=== PATIENT | male | born 1975 | race Caucasian/White ===

== ENCOUNTER 2021-03-31 08:08 | Inpatient (IN) | payer BC ==
[~2021-03-31] VITALS: Ht 172.7 cm; Wt 87.1 kg
[2021-03-31 08:23] VITALS: BP 123/78
[2021-03-31] MEDS ORDERED: MELOXICAM7.5 MG PO (08:27)
[2021-03-31] MEDS ORDERED: LOSARTAN-HCTZ1 EAC3 PO (08:27)
[2021-03-31 08:57] LABS: BE(vivo) 1.7 mmol/L (-2 to +3); HCO3 24.6 mmol/L (22.0-26.0); PCO2 33.6 mmHg (35.0-45.0); PO2 75.5 mmHg (80.0-100.0); pH 7.482 (7.360-7.450); sO2 96.1 % (92.0-98.0)
[2021-03-31 08:58] LABS: ABSOLUTE NEUTROPHILS 5.8 thou/uL (1.4-8.2); BASOPHILS 0.1 % (0.0-2.0); HEMOGLOBIN 14.7 gm/dL (14.0-18.0); LYMPHOCYTES 8.2 % (24.0-44.0); MCH 32.2 pg (26.0-34.0); MCHC 34.1 g/dL (28.0-37.0); MCV 94.3 fL (80.0-100.0); MONOCYTES 9.3 % (1.0-8.0); PLATELET COUNT 199 thou/uL (150-400); POLYS 82.4 % (36.0-66.0); RBC 4.56 mil/uL (4.50-6.00); RDW 13.3 % (10.5-14.5); WBC 7.1 thou/uL (4.0-11.0)
[2021-03-31 09:02] LABS: CALCIUM 8.5 mg/dL (8.5-10.1); POTASSIUM 3.5 mmol/L (3.5-5.1)
[2021-03-31 09:18] LABS: APTT 30.1 Seconds (24.5-32.8); D-DIMER 0.4 ug/mLFEU (0.19-0.50); PROTIME 10.9 Seconds (10.5-12.1)
[2021-03-31 09:19] LABS: ALBUMIN 3.1 g/dL (3.4-5.0); TOTAL BILIRUBIN 0.5 mg/dL (0.2-1.0); TOTAL PROTEIN 6.6 g/dL (6.4-8.2)
--- NOTE | 2021-03-31 09:39 | EKG ---
[address] [place] [place] [address] ELECTROCARDIOGRAM REPORT Name: REY DAVIS [facility] [id number] Admission: 03/31/21 Attend Phys: Discharge: Date of : 75 Report #: [id number] [facility] ED Test Date: 2021-03-31 Test Time: 08:46:01 Pat Name: REY DAVIS Department: Room: Gender: M Clinical Rn Manager: : 1975 Requested By: Wilfredo Devine Order Number: [id number] MD: Jett Ang Measurements Intervals [place] Rate: 84 P: 32 DE: 125 QRS: 38 QRSD: 86 T: 13 QT: 351 QTc: 415 Interpretive Statements Sinus rhythm Anteroseptal infarct, old No previous ECG available for comparison Electronically Signed On 03-31-2021 9:39:31 CDT by Jett Ang [email or web address] <ELECTRONICALLY SIGNED> By: Jett Ang MD, [facility] 03/31/21 [id number] [id number] Jett Ang MD, FACC /EPI
[2021-03-31 09:56] VITALS: BP 123/78
[2021-03-31 10:40] VITALS: BP 125/71
[2021-03-31 11:09] VITALS: BP 150/83
[2021-03-31] MEDS ORDERED: PREDNISONE 10 M10 MG PO (13:14)
[2021-03-31 15:51] VITALS: BP 133/81
[2021-03-31 16:49] LABS: URINE BILIRUBIN NEGATIVE (Negative); URINE BLOOD TRACE (Negative); URINE CLARITY CLEAR; URINE COLOR YELLOW; URINE GLUCOSE-RANDOM* NEGATIVE (Negative); URINE KETONES NEGATIVE (Negative); URINE LEUKOCYTES-REFLEX NEGATIVE (Negative); URINE NITRITE-REFLEX NEGATIVE (Negative); URINE PROTEIN (DIPSTICK) NEGATIVE (Negative); URINE SPECIFIC GRAVITY 1.015 (1.005-1.035); URINE UROBILINOGEN 0.2 E.U./dl (0.2-1.0)
[2021-03-31 19:29] VITALS: BP 134/79
--- NOTE | 2021-03-31 22:37 | NUR ---
PT RESTING IN BED, REPORTS HEADACHE PROVIDED PRNS AND COFFEE AND ICE. DR CALLED PER PT REQUEST FOR SLEEP AID, ORDER RECEIVED AND PROVIDED. O2 PER NC, LUNGS CLEAR, LOOSE COUGH. PT DECLINED HS SNACK. PT CALLS FOR ASSISTANCE.
[2021-04-01 01:41] VITALS: BP 145/73
[2021-04-01 03:44] LABS: ABSOLUTE NEUTROPHILS 4.7 thou/uL (1.4-8.2); HEMATOCRIT 38.9 % (42.0-52.0); HEMOGLOBIN 13.4 gm/dL (14.0-18.0); MCH 32.1 pg (26.0-34.0); MCHC 34.3 g/dL (28.0-37.0); MCV 93.5 fL (80.0-100.0); PLATELET COUNT 203 thou/uL (150-400); RBC 4.16 mil/uL (4.50-6.00); RDW 13.3 % (10.5-14.5)
[2021-04-01 04:03] LABS: ALBUMIN 2.5 g/dL (3.4-5.0); CALCIUM 7.6 mg/dL (8.5-10.1); CREATININE 0.9 mg/dL (0.7-1.3); POTASSIUM 3.6 mmol/L (3.5-5.1); TOTAL BILIRUBIN 0.5 mg/dL (0.2-1.0); TOTAL PROTEIN 5.8 g/dL (6.4-8.2)
[2021-04-01 04:10] LABS: DIRECT BILIRUBIN 0.1 mg/dL (<0.1-0.2); PHOSPHORUS 3.2 mg/dL (2.5-4.9)
[2021-04-01 04:19] LABS: INR 1.06; PROTIME 11.5 Seconds (10.5-12.1)
[2021-04-01 04:35] VITALS: BP 144/70
[2021-04-01 07:24] VITALS: BP 134/82
--- NOTE | 2021-04-01 09:17 | EKG ---
[place] [address] [facility] [place] [address] ELECTROCARDIOGRAM REPORT Name: REY DAVIS Room #: 355-P ADM IN M.R.#: [id number] Admission: 03/31/21 Attend Phys: Joss Egan MD Discharge: Date of : 75 Report #: [id number] [facility] Test Date: 2021-04-01 Test Time: 08:09:37 Pat Name: REY DAVIS Department: Room: 355 P Gender: M Assistant Store Manager: : 1975 Requested By: Joss Egan Order Number: [id number] : Aditya Sanchez Measurements Intervals [place] Rate: 73 P: 52 ID: [id number] QRS: 53 QRSD: 89 T: 50 QT: 377 QTc: 416 Interpretive Statements Sinus rhythm Probable left ventricular hypertrophy Baseline wander in lead(s) V3 Compared to ECG 03/31/2021 08:46:01 Myocardial infarct finding no longer present Electronically Signed On 04-01-2021 9:16:49 CDT by Aditya Sanchez [email or web address] <ELECTRONICALLY SIGNED> By: Aditya Sanchez MD, [facility] 04/01/21915 8 8 Aditya Sanchez MD, [facility] /EPI
[2021-04-01 11:53] VITALS: BP 133/82
[2021-04-01 15:43] VITALS: BP 151/90
--- NOTE | 2021-04-01 16:47 | NUR ---
INITIAL ASSESSMENT: Received consult. MARISA reviewed chart and spoke with nursing and attending physician. Pt was admitted from home due to COVID pneumonia. Pt placed in Enhanced Isolation. Pt is afebrile and requiring 3-4L of O2. Pt is on IV abx, IV steroids and Remdesivir. Pt was recently seen at [facility] and was dx with radial nerve palsy in his right arm. SW spoke with pt via phone. Introduced role of SW. Pt is alert/orientated x 4. Pt reports he lives at home with his and children. Prior to admission, pt was independent with ADLs. No use of DME. No hx of HH or post-acute placement. Pt's PCP is Dr. Egan. Pt provided SW with insurance info. MARISA received copies of pt's insurance card and faxed to admitting. Received fax confirmation. MARISA notified 3W UR RN. Therapy evals have been ordered to evaluate pt for discharge needs. MARISA is following to assist as needed with discharge planning.
--- NOTE | 2021-04-01 18:28 | NUR ---
RN ASSUMED PT'S CARE AT 0700AM, PT IS A&OX4, PT IS ON O2 3L/MIN/NC, PT'S P2SAT STAYS AT 94-98%, PT'S SOB AND PAIN HAVE IMPROVED, PT IS CONTINUING IV ABX AND TREAT COVID MEDICATIONS, PT'S VS ARE STABLE, PT CAN GET UP TO CHAIR AND BATH ROOM WITHOUT ASSIST,
[2021-04-01 19:44] VITALS: BP 147/85
--- NOTE | 2021-04-01 22:09 | NUR ---
PT UP IN BED TALKING, LIGHTS ON WATCHING TV. PT REPORTS FEELING BETTER AND THAT HEADACHE IS IMPROVED. IVF INTACT. O2 PER NC. LUNGS WITH WHEEZES. PT ASKED THAT O2 BE TAPERED DOWN, PT STATED DR HAS SCARED HIM RE HIS NEED FOR O2 INCREASING AND HE WANTS PROVE DR WRONG. PT ASKED FOR SANDWICH TRAY AND PROVIDED. PT TALKING ABOUT MOVIES ON [employer] AND HIS , CHEERFUL, NOT SOA OR PRESENTING FATIGUED. PT STATED HE IS USING HIS IS AND IS GOING TO TRY TO SLEEP ON HIS STOMACH. INDEP WITH ADLS.
[2021-04-02 04:45] LABS: ABSOLUTE NEUTROPHILS 3.6 thou/uL (1.4-8.2); BASOPHILS 0.1 % (0.0-2.0); HEMATOCRIT 38.4 % (42.0-52.0); HEMOGLOBIN 13.2 gm/dL (14.0-18.0); LYMPHOCYTES 10.5 % (24.0-44.0); MCH 32.7 pg (26.0-34.0); MCHC 34.5 g/dL (28.0-37.0); MCV 94.9 fL (80.0-100.0); MONOCYTES 16.2 % (1.0-8.0); PLATELET COUNT 216 thou/uL (150-400); POLYS 73.2 % (36.0-66.0); RBC 4.05 mil/uL (4.50-6.00); RDW 13.1 % (10.5-14.5)
[2021-04-02 04:59] LABS: ALBUMIN 2.5 g/dL (3.4-5.0); CALCIUM 7.6 mg/dL (8.5-10.1); CREATININE 0.9 mg/dL (0.7-1.3); DIRECT BILIRUBIN 0.1 mg/dL (<0.1-0.2); PHOSPHORUS 3.4 mg/dL (2.5-4.9); POTASSIUM 4.4 mmol/L (3.5-5.1); TOTAL BILIRUBIN 0.4 mg/dL (0.2-1.0); TOTAL PROTEIN 5.3 g/dL (6.4-8.2)
[2021-04-02 05:49] VITALS: BP 135/75
--- NOTE | 2021-04-02 06:02 | NUR ---
PT REPORTED INCREASED SOA AFTER AMBULATING TO RESTROOM AROUND 3AM. PT STATED HE SLEPT ON HIS STOMACH LAST NIGHT AND AWAKENED WITH NC OFF AND HE PLACED IT BACK ON. PT REPORTING INCREASE IN SOA IN THE TRAVEL NURSE AND DOING BETTER IN THE EVENING. O2 SAT 95%. PT COUGHING YELLOW AND BLOODY SPUTUM. RESPIRATORY PROVIDED PT INHALER. PT DENIES PAIN. PT ENCOURAGED TO USE BSC UNTIL SOA WITH EXERTION IMPROVES.
[2021-04-02 07:08] LABS: HIV ANTIBODY Non Reactive (Non Reactive)
[2021-04-02 08:14] VITALS: BP 137/79
[2021-04-02 11:53] VITALS: BP 150/94
[2021-04-02 15:32] VITALS: BP 147/88
--- NOTE | 2021-04-02 15:49 | NUR ---
SW reviewed chart and spoke with nursing. Pt remains in Enhanced Isolation due to COVID. Pt is afebrile and on 3.5L of O2. PT is on IV abx, IV steroids and Remdesivir. Pt's insurance updated. Plan is for pt to discharge home when medically stable. MARISA is following to assist as needed with discharge planning.
--- NOTE | 2021-04-02 18:28 | NUR ---
PT IS PROGREESSING TOWARDS CARE. CURRENTLY ON 3L O2. SOB WITH EXERTION. INDEPENDENT TO THE BR. CONTINUE TO BE IN ENHANCED ISO. DENIES ANY NEEDS AT MOMENT.
[2021-04-02 20:05] VITALS: BP 142/77
[2021-04-03 04:00] VITALS: BP 154/86
[2021-04-03 04:07] VITALS: BP 154/86
--- NOTE | 2021-04-03 06:28 | NUR ---
complains of pain to his head and shoulders. acetaminophen helped to control the pain. he is resing quietly at this time
[2021-04-03 06:32] LABS: ALBUMIN 2.4 g/dL (3.4-5.0); CALCIUM 7.8 mg/dL (8.5-10.1); CREATININE 0.9 mg/dL (0.7-1.3); DIRECT BILIRUBIN 0.1 mg/dL (<0.1-0.2); PHOSPHORUS 3.3 mg/dL (2.5-4.9); TOTAL BILIRUBIN 0.4 mg/dL (0.2-1.0); TOTAL PROTEIN 5.4 g/dL (6.4-8.2)
[2021-04-03 08:32] VITALS: BP 149/86
--- NOTE | 2021-04-03 14:12 | NUR ---
PT IS SLOWLY PROGRESSING TOWARDS CARE. COTNINUE TO BE ON 3L OF OXYGEN, SOB WITH EXERTION. INDEPENDENT TO BATHROOM. ENHANCED ISOLATION IN PLACE. HAD A SHOWER TODAY, BED CHANGED. DENIES ANY NEEDS ELAINE
--- NOTE | 2021-04-03 14:29 | NUR ---
MARISA reviewed chart and spoke with nursing and attending physician. Pt remains in Enhanced Isolation due to COVID. Pt is afebrile and on 3L of O2. Pt is on IV abx and IV steroids. Pt to complete course of Remdesivir tomorrow. MARISA spoke with pt via phone to provide update and discuss discharge plan. MARISA also spoke with pt's , Gely, via phone to provide update and discuss discharge. Pt's has scheduled pt for outpatient therapy with a hand specialist. Options for [employer] provided for home O2. No preference voiced. MARISA verified pt's home address and phone number. MARISA faxed Home O2 referral to [facility]. Notified liaison of new referral. Pt will need rest/exercise oximetry prior to discharge. MARISA contacted attending physician to request script for outpatient therapy. Discharge home is anticipated for tomorrow. MARISA is following to assist as needed with discharge planning.
[2021-04-03 15:32] VITALS: BP 153/79
[2021-04-03 19:19] VITALS: BP 151/86
--- NOTE | 2021-04-03 22:48 | NUR ---
PT AMBULATING IN ROOM. O2 PER NC. PT PLANS ON DC IN AM, SMILING TALKATIVE. PRN FOR HEADACHE. PT C/O NECK BACK PAIN, HEARTBURN AND RASH ABOVE R EYE. PT STARTED GABAPENTIN FOR NERVE PAIN STATED HIS HAND FEELS BETTER, PT PROVIDED OTC ZGUARD FOR FACE AND SODA AND SALTINES FOR HEARTBURN.
[2021-04-04 03:11] VITALS: BP 135/78
[2021-04-04 06:39] LABS: ALBUMIN 2.5 g/dL (3.4-5.0); ANION GAP 8 mmol/L (7-16); BUN 19 mg/dL (7-18); CALCIUM 8.3 mg/dL (8.5-10.1); CHLORIDE 104 mmol/L (98-107); CO2 28 mmol/L (21-32); CREATININE 0.9 mg/dL (0.7-1.3); DIRECT BILIRUBIN < 0.1 mg/dL (<0.1-0.2); GLUCOSE 93 mg/dL (74-106); PHOSPHORUS 3.8 mg/dL (2.5-4.9); POTASSIUM 3.8 mmol/L (3.5-5.1); SGOT 63 U/L (15-37); SGPT 92 U/L (30-65); SODIUM 140 mmol/L (136-145); TOTAL BILIRUBIN 0.4 mg/dL (0.2-1.0); TOTAL PROTEIN 5.7 g/dL (6.4-8.2)
[2021-04-04 07:33] VITALS: BP 138/84
[2021-04-04 08:49] LABS: T-SPOT.TB Negative
[2021-04-04] MEDS ORDERED: NEURONTIN 300M300 M2 PO (11:26)
[2021-04-04] MEDS ORDERED: ZINC SULFATE50 MG PO (11:26)
[2021-04-04] MEDS ORDERED: VENTOLIN HFA 1818 GM INH (11:27)
[2021-04-04] MEDS ORDERED: PREDNISONE 10 M10 MG PO (11:27)
[2021-04-04] MEDS ORDERED: CEFDINIR300 MG PO (11:28)
[2021-04-04 12:48] VITALS: BP 138/84
--- NOTE | 2021-04-04 13:07 | NUR ---
ASSUMED PATIENT CARE AT 0700. A/O X4. TITRATED TO RA TOLERATED WELL. PROGRESSING TOWARDS POC GOALS. DC TO HOME NOW.
--- NOTE | 2021-04-04 13:31 | NUR ---
DISCHARGE NOTE: SW reviewed chart and spoke with nursing. Pt remains in Enhanced Isolation due to COVID. Pt is medically stable for discharge home today. Rest/exercise oximetry completed. Pt does not need home O2. SW placed call to pt's room. No answer. MARISA spoke with pt's Gely to provide update and discuss discharge plan. Gely is on her way to pick pt up. Script for outpatient therapy was not left by attending physician. Pt's states she will get the script from physician's office. No additional SW needs identified at this time, but is available to assist should needs arise.
--- NOTE | 2021-04-05 11:42 | HC ---
[facility] [place] [address] CONSULTATION Name: REY DAVIS Room #: 355-P [facility] IN M.R.#: [id number] Admission: 03/31/21 Attend Phys: Joss Egan MD Discharge: 04/04/21 Date of : 75 Report #: [id number] THIS REPORT FOR: cc: Joss Egan MD, Neal A. MD [place], Roxane S. DO DATE OF SERVICE: 03/31/2021 NEUROLOGY CONSULTATION HISTORY OF PRESENT ILLNESS: The patient is a 45-year-old male who came to the Emergency Room. He states that he was diagnosed with COVID 10 days ago and prescribed steroids. However, he came to the Emergency Room because he noticed that his breathing has become more difficult over the last several days. He also has a persistent fever and chest tightness. The patient has also had in the last 4 days, weakness of the right hand where it is difficult to lift up his fingers. The patient was seen at [facility] and had a CT scan of the head, which is unremarkable. He was diagnosed with a radial nerve palsy. A Neurology consult is requested. The patient states that his hand may be a bit better. He states he has been lying around for a few days. PAST MEDICAL HISTORY: Hypertension. PAST SURGICAL HISTORY: Negative. MEDICATIONS: Losartan/hydrochlorothiazide 100/25 daily, meloxicam 7.5 mg daily. ALLERGIES: None. VITAL SIGNS: Temperature 37.1, pulse rate 86, respiratory rate 18, blood pressure 150/83, bedside pulse oximetry 99% on 4 liters. LABORATORY DATA: Hematology: White blood cell count 7.1, hemoglobin 14.7, hematocrit 43, MCV 94, platelet count 199,000. INR 1. D-dimer 0.4. Urinalysis not received. Blood gas: pH 7.482, pCO2 of 33.6, pO2 of 75.5, oxygen saturation 96.1. Chemistry: Sodium 142, potassium 3.5, chloride 102, carbon dioxide 32, BUN 21, creatinine 1, glucose 100, lactic acid 1.5, calcium 8.5, total bilirubin 0.5. Liver functions are elevated, AST 194, ALT 90, alkaline phosphatase 43. LDH 492. Creatinine kinase 3407. C-reactive protein 66.2. BNP 130, total protein 6.6, albumin 3.1. Procalcitonin less than 0.05. IMAGING: CT scan of the head is negative. Chest x-ray demonstrate moderate infiltrates, right greater than left with perihilar prominence consistent [place] [address] CONSULTATION Name: REY DAVIS KAITLIN Room #: 355-[facility] IN ..#: [id number] Admission: 03/31/21 Attend Phys: Joss Egan MD Discharge: 04/04/21 Date of : 75 Report #: [id number] NEUROLOGIC EXAM: Cranial nerves 2-12 are grossly intact. Motor exam demonstrates symmetrical strength in the extremities with the exception of the right upper extremity. The patient has 3-4/5 finger extension and 4/5 wrist extension. The triceps is 5/5. Reflexes are symmetrical throughout. Plantar responses are flexor. There is no dysmetria in the upper extremities. IMPRESSION AND PLAN: This patient has a radial nerve palsy. The patient was diagnosed with a radial nerve palsy at [facility] and I agree with this diagnosis. This tends to improve with time and already in the past 4 days, the patient has had improvement. This may be from the steroids that he has been given. The patient as of yet does not have any standing orders, but I suspect he will be put on scheduled steroids and as I said, this should continue to improve the weakness from the radial nerve palsy. If the patient does not regain function, then I would recommend as an outpatient an EMG of the right upper extremity. I am going to sign off on the patient. However, if there is any change in his neurological status, please contact the Neurology service as soon as possible. <ELECTRONICALLY SIGNED> By: Reina Sabillon DO 04/05/21 1142 1132 1624 Reina Sabillon DO /nt
== END 2021-04-04 13:52 | disposition home or self-care (01) | DRG 177 ==
LOC: ER 08:08 → EROBS 09:46 → 3W 09:46
PROVIDERS: Emergency Medicine; Specialist; ADMIT Family Medicine; ATTEND Family Medicine
PROC: XW033E5 Introduction of Remdesivir Anti-infective into Peripheral Vein, Percutaneous Approach, New Technology Group 5 (ICD-10-PCS; principal; 2021-03-31)
PROC: 5A0935A Assistance with Respiratory Ventilation, Less than 24 Consecutive Hours, High Flow/Velocity Cannula (ICD-10-PCS; 2021-04-01)
DX: U07.1 COVID-19 (principal); J96.01 Acute respiratory failure with hypoxia; M62.82 Rhabdomyolysis; J12.82 Pneumonia due to coronavirus disease 2019; N17.9 Acute kidney failure, unspecified; G56.31 Lesion of radial nerve, right upper limb; I10 Essential (primary) hypertension; S44.21XA Injury of radial nerve at upper arm level, right arm, initial encounter; X58.XXXA Exposure to other specified factors, initial encounter; Y93.89 Activity, other specified; Y92.89 Other specified places as the place of occurrence of the external cause; Y99.8 Other external cause status; Z79.899 Other long term (current) drug therapy
CPT/HCPCS: 10879